=== PATIENT | male | born 1950 | race Caucasian/White ===

== ENCOUNTER → 2018-09-10 | Outpatient (CLI) | payer MEDICARE | END | disposition home or self-care (01) | LOC: CFH 13:06 | PROVIDERS: ATTEND Internal Medicine Cardiovascular Disease | DX: I35.1 Nonrheumatic aortic (valve) insufficiency (principal); I10 Essential (primary) hypertension; I25.10 Atherosclerotic heart disease of native coronary artery without angina pectoris; E78.5 Hyperlipidemia, unspecified; Z87.891 Personal history of nicotine dependence | CPT/HCPCS: 93306 ==

== ENCOUNTER → 2018-10-28 | Outpatient (CLI) | payer MEDICARE ==
[~2018-10-28] MED LIST: GADOBUTROL 10 MMOL/10 ML PFS ONE
== END | disposition home or self-care (01) ==
LOC: CFH 14:20
PROVIDERS: ATTEND Nurse Practitioner Family
DX: I73.9 Peripheral vascular disease, unspecified (principal); R90.82 White matter disease, unspecified; G93.89 Other specified disorders of brain
CPT/HCPCS: 70553; A9585

== ENCOUNTER → 2019-01-03 | Outpatient (CLI) | payer MEDICARE ==
[~2019-01-03] MED LIST changes: +ASPI-496 PO; +ATOR10TA PO; +BENA40TA3 PO; -GADOBUTROL 10 MMOL/10 ML PFS ONE; +HYDR25TA6 PO; +LEVE250T5 PO; +LEVE500T8 PO
[2019-01-03 10:12] LABS: MICROSCOPIC NOT IND
[2019-01-03 10:14] LABS: BASOPHILS # (AUTO) 0.09 x10^3/uL (0-0.1); BASOPHILS % (AUTO) 1 % (0-1); EOSINOPHILS # (AUTO) 0.14 x10^3/uL (0-0.4); EOSINOPHILS % (AUTO) 2 % (1-7); LYMPHOCYTES # (AUTO) 2.32 x10^3/uL (1-3.4); LYMPHOCYTES % (AUTO) 26 % (22-44); MD NO; MEAN CORPUSCULAR HEMOGLOBIN 31.5 pg (27.5-34.5); MEAN CORPUSCULAR VOLUME 92.5 fL (81-97); MEAN PLATELET VOLUME 7.7 fL (7.4-10.4); MONOCYTES # (AUTO) 0.71 x10^3/uL (0.2-0.8); MONOCYTES % (AUTO) 8 % (2-9); NEUTROPHILS # (AUTO) 5.69 x10^3/uL (1.8-6.8); NEUTROPHILS % (AUTO) 64 % (42-75); PLATELET COUNT 377 x10^3/uL (130-400); RED BLOOD COUNT 5.21 x10^6/uL (4.38-5.82); RED CELL DISTRIBUTION WIDTH 14.2 % (9.4-14.8)
[2019-01-03 10:16] LABS: CULTURE INDICATED? NO
[2019-01-03 10:22] LABS: ALANINE AMINOTRANSFERASE 22 U/L (12-78); ALBUMIN 3.6 g/dL (3.4-5.0); ANION GAP 4 mmol/L (5-15); CALCIUM 9.2 mg/dL (8.5-10.1); CHLORIDE 97 mmol/L (98-107); CREATININE 1.11 mg/dL (0.7-1.3)
[2019-01-03 10:25] LABS: ALKALINE PHOSPHATASE 79 U/L (45-117); BILIRUBIN,TOTAL 0.6 mg/dL (0.2-1.0); TOTAL PROTEIN 7.8 g/dL (6.4-8.2)
== END | disposition home or self-care (01) ==
LOC: STAR 08:48
PROVIDERS: ATTEND Orthopaedic Surgery
DX: Z01.818 Encounter for other preprocedural examination (principal); M17.11 Unilateral primary osteoarthritis, right knee
CPT/HCPCS: 36415; 80053; 81003; 85025; 87081; 93005

== ENCOUNTER 2019-01-10 05:23 | Inpatient (IN) | payer MEDICARE ==
[~2019-01-10] VITALS: Ht 188 cm; Wt 101.0 kg
[2019-01-10] MEDS ORDERED: LACTATED RINGERS 1,000 ML IV SCH (06:07)
[2019-01-10] MEDS ORDERED: KETOROLAC 60 MG/2 ML ONE (06:12)
[2019-01-10] MEDS ORDERED: EPINEPHRINE 1 MG/ML, 1ML ONE (06:13)
[2019-01-10] MEDS ORDERED: ROPIvacaine/PF 0.2%, 20 ML ONE (06:13)
[2019-01-10] MEDS ORDERED: SODIUM CHLORIDE 0.9% 50 ML ONE (06:13)
[2019-01-10] MEDS ORDERED: TRANEXAMIC ACID 100 MG/ML, 10ML ONE (06:13)
[2019-01-10] MEDS ORDERED: VANCOMYCIN 1,000 MG ONE (06:13)
[2019-01-10 06:38] VITALS: BP 152/83
[2019-01-10] MEDS ORDERED: MIDAZOLAM 1 MG/ML, 2ML ONE (06:44)
[2019-01-10] MEDS ORDERED: FENTANYL PF 250 MCG/5ML ONE (06:44)
[2019-01-10] MEDS ORDERED: LIDOCAINE 2%, 6 ML JEL.PF.APP MM ONE (06:47)
[2019-01-10] MEDS ORDERED: OxyconTIN ER 10 MG TAB.ER PO ONE (07:00)
[2019-01-10] MEDS ORDERED: ACETAMINOPHEN 500 MG TABLET PO ONE (07:00)
[2019-01-10] MEDS ORDERED: ONDANSETRON ODT 8 MG PO ONE (07:00)
[2019-01-10] MEDS ORDERED: GABAPENTIN 300 MG CAPSULE PO ONE (07:00)
[2019-01-10] MEDS ORDERED: hydrALAzine 20 MG/ML, 1ML ONE (07:08)
[2019-01-10] MEDS ORDERED: DEXAMETHASONE 4 MG/ML, 1ML ONE (07:08)
[2019-01-10] MEDS ORDERED: BUPIVACAINE/PF 0.25% ONE (07:54)
[2019-01-10] MEDS ORDERED: LIDOCAINE-MPF 2% ,5ML ONE (07:54)
[2019-01-10] MEDS ORDERED: CEFAZOLIN 1,000 MG ONE (07:54)
[2019-01-10] MEDS ORDERED: PROPOFOL 10 MG/ML, 20ML ONE (07:54)
[2019-01-10] MEDS ORDERED: MIDAZOLAM 1 MG/ML, 2ML IV PRN (08:00)
[2019-01-10] MEDS ORDERED: MEPERIDINE/PF 25MG/0.5ML IVPush PRN (08:00)
[2019-01-10] MEDS ORDERED: ONDANSETRON 2MG/ML, 2ML IV PRN ×2 (08:00→09:00)
[2019-01-10] MEDS ORDERED: PROMETHAZINE 25 MG/ML, 1ML IV PRN (08:00)
[2019-01-10] MEDS ORDERED: OXYcodone 5 MG/5 ML ORAL.SOL UDC PO PRN (08:00)
[2019-01-10] MEDS ORDERED: ALBUTEROL/IPRATROPIUM 2.5MG/0.5MG, 3 ML NPPB PRN (08:00)
[2019-01-10] MEDS ORDERED: METOPROLOL 1 MG/ML, 5ML IV PRN (08:00)
[2019-01-10] MEDS ORDERED: hydrALAzine 20 MG/ML, 1ML IV PRN (08:00)
[2019-01-10] MEDS ORDERED: FENTANYL PF 100 MCG/2ML ONE (08:35)
[2019-01-10] MEDS: D5%-0.45% NACL 1,000 ML IV SCH ×2 (08:35→13:24)
[2019-01-10] MEDS: FENTANYL PF 100 MCG/2ML IV PRN ×2 (08:37→08:53)
[2019-01-10] MEDS ORDERED: HYDROmorphone 1 MG/ML, 1ML ONE (08:43)
[2019-01-10] MEDS: HYDROmorphone 2 MG/ML, 1ML IVPush PRN ×2 (08:45→08:57)
[2019-01-10] MEDS ORDERED: PROMETHAZINE 25 MG/ML, 1ML IM PRN (09:00)
[2019-01-10] MEDS ORDERED: DIAZEPAM 5 MG TABLET PO PRN (09:00)
[2019-01-10] MEDS ORDERED: HYDROmorphone 1 MG/ML, 1ML IV PRN (09:00)
[2019-01-10] MEDS ORDERED: SENNA/DOCUSATE TABLET PO PRN (09:00)
[2019-01-10] MEDS ORDERED: BISACODYL 10 MG SUPP PR PRN (09:00)
[2019-01-10] MEDS ORDERED: MULTIVITAMINS/MINERALS TABLET PO SCH (09:00)
[2019-01-10] MEDS ORDERED: KETOROLAC 30 MG/1 ML IV SCH (09:00)
[2019-01-10] MEDS ORDERED: HYDROCHLOROTHIAZIDE 25 MG TABLET PO SCH (09:00)
[2019-01-10] MEDS ORDERED: DOCUSATE 100 MG CAPSULE PO SCH (09:00)
[2019-01-10] MEDS ORDERED: OXYcodone IR 5MG TABLET PO PRN (09:00)
[2019-01-10] MEDS ORDERED: TRANEXAMIC ACID 1,000 MG in SODIUM CHLORIDE 0.9% 100 ML IVPB ONE (09:00)
[2019-01-10] MEDS ORDERED: DIPHENHYDRAMINE 50 MG CAPSULE PO PRN (09:00)
[2019-01-10] MEDS ORDERED: BENAZEPRIL 20 MG TABLET PO SCH (09:00)
[2019-01-10] MEDS ORDERED: PROMETHAZINE 12.5 MG SUPP PR PRN (09:00)
[2019-01-10] MEDS ORDERED: MAGNESIUM HYDROXIDE 8%, 30ML UDC PO PRN (09:00)
[2019-01-10] MEDS ORDERED: ONDANSETRON 4 MG TABLET PO PRN (09:00)
[2019-01-10] MEDS: ACETAMINOPHEN 650 MG/20.3 ML UDC PO SCH ×2 (09:00→15:14)
[2019-01-10] MEDS ORDERED: LEVETIRACETAM 500 MG TABLET PO SCH ×2 (09:00)
[2019-01-10] MEDS ORDERED: ZOLPIDEM 5MG TABLET PO PRN (09:00)
[2019-01-10] MEDS ORDERED: ALUMINUM/MAG/SIMETHICONE 30 ML UDC PO PRN (09:00)
[2019-01-10 09:45] VITALS: BP 145/70
[2019-01-10 13:48] VITALS: BP 129/68
[2019-01-10] MEDS ORDERED: CEFAZOLIN PMX 2GM/50ML 50 ML IVPB SCH (14:30)
[2019-01-10] MEDS ORDERED: OXYC5CAP2 PO (17:04)
[2019-01-10 18:00] VITALS: BP 122/69
[2019-01-10] MEDS ORDERED: ATORVASTATIN 10 MG TABLET PO SCH (21:00)
[2019-01-11] MEDS ORDERED: DEXAMETHASONE 4 MG/ML IVPush SCH (06:00)
[2019-01-11] MEDS ORDERED: ASPIRIN 81 MG TABLET EC PO SCH (06:00)
[2019-01-11] MEDS ORDERED: KETOROLAC 30 MG/1 ML IV SCH (09:00)
== END 2019-01-10 18:06 | disposition home or self-care (01) | DRG 470 ==
LOC: OUT 05:23 → ORIP 08:35 → 4NOR 09:48
PROVIDERS: ADMIT Orthopaedic Surgery; ATTEND Orthopaedic Surgery
PROC: 3E0T3BZ Introduction of Anesthetic Agent into Peripheral Nerves and Plexi, Percutaneous Approach (ICD-10-PCS; 2019-01-10)
PROC: 0SRC0J9 Replacement of Right Knee Joint with Synthetic Substitute, Cemented, Open Approach (ICD-10-PCS; principal; 2019-01-10 07:30)
DX: M17.11 Unilateral primary osteoarthritis, right knee (principal); I10 Essential (primary) hypertension; E78.5 Hyperlipidemia, unspecified; M21.161 Varus deformity, not elsewhere classified, right knee; I25.10 Atherosclerotic heart disease of native coronary artery without angina pectoris; L40.9 Psoriasis, unspecified; Z87.891 Personal history of nicotine dependence; I25.2 Old myocardial infarction; Z95.5 Presence of coronary angioplasty implant and graft; Z79.82 Long term (current) use of aspirin
CPT/HCPCS: C1713; G0378; J0171; J0690; J1100; J1170; J1885; J2250; J2704; J2795; J3010; J3370; J3490; Q0162; C1776; J0360; J7120

== ENCOUNTER 2019-06-02 07:19 | Outpatient (CLI) | payer MEDICARE ==
[~2019-06-02 07:19] MED LIST changes: +OXYC5CAP2 PO
== END 2019-06-02 23:59 | disposition home or self-care (01) ==
LOC: CVU 07:19
PROVIDERS: ATTEND Internal Medicine Cardiovascular Disease
DX: I34.0 Nonrheumatic mitral (valve) insufficiency (principal); I51.7 Cardiomegaly; E78.5 Hyperlipidemia, unspecified; Z87.891 Personal history of nicotine dependence
CPT/HCPCS: 0399T; 93306

== ENCOUNTER 2019-06-02 08:31 | Emergency (ER) | payer MEDICARE ==
[~2019-06-02] VITALS: Ht 188 cm; Wt 96.0 kg
--- NOTE | 2019-06-02 08:41 | NUR ---
Pt ambulates to room from triage with steady gait and balance. NADN. No obvious defecits observed.
--- NOTE | 2019-06-02 08:59 | NUR ---
Pt resting on gurney. Pt states, "I am feeling anxious this morning. I smoked a ciggarette and drank some coffee this monring. I normally don't smoke. I had an echo done this morning, my blood pressure was too high, so they sent me down here." Pt denies cp, sob, n/v/d, or syncope. CMS intact. NADN. Call light within reach. NIBP cuff on. Provided bedside report to IDANIA Camejo. All questions answered.
--- NOTE | 2019-06-02 08:59 | NUR ---
BEDSIDE REPORT FROM IDANIA MEADOWS. ASSUMED CARE OF PATIENT AT THIS TIME.
--- NOTE | 2019-06-02 09:00 | NUR ---
PATIENT AMB WITH STEADY GAIT TO BATHROOM.
[2019-06-02] MEDS ORDERED: LORazepam 0.5MG TABLET PO ONE (09:30)
[2019-06-02] MEDS ORDERED: LORazepam 0.5MG TABLET ONE (09:32)
[2019-06-02 09:45] LABS: BASOPHILS # (AUTO) 0.06 x10^3/uL (0-0.1); BASOPHILS % (AUTO) 1 % (0-1); EOSINOPHILS # (AUTO) 0.09 x10^3/uL (0-0.4); EOSINOPHILS % (AUTO) 1 % (1-7); LYMPHOCYTES # (AUTO) 1.62 x10^3/uL (1-3.4); LYMPHOCYTES % (AUTO) 14 % (22-44); MD NO; MEAN CORPUSCULAR HEMOGLOBIN 30.4 pg (27.5-34.5); MEAN CORPUSCULAR VOLUME 92.1 fL (81-97); MONOCYTES # (AUTO) 0.77 x10^3/uL (0.2-0.8); MONOCYTES % (AUTO) 7 % (2-9); NEUTROPHILS # (AUTO) 8.89 x10^3/uL (1.8-6.8); NEUTROPHILS % (AUTO) 78 % (42-75); PLATELET COUNT 365 x10^3/uL (130-400); RED BLOOD COUNT 5.15 x10^6/uL (4.38-5.82); RED CELL DISTRIBUTION WIDTH 14.9 % (9.4-14.8)
[2019-06-02 09:57] LABS: ALANINE AMINOTRANSFERASE 18 U/L (12-78); ALBUMIN 3.7 g/dL (3.4-5.0); ANION GAP 6 mmol/L (5-15); CALCIUM 9.1 mg/dL (8.5-10.1); CHLORIDE 98 mmol/L (98-107); CREATININE 1.08 mg/dL (0.7-1.3)
[2019-06-02 10:02] LABS: ALKALINE PHOSPHATASE 95 U/L (45-117); BILIRUBIN,TOTAL 0.7 mg/dL (0.2-1.0); TOTAL PROTEIN 7.8 g/dL (6.4-8.2); TROPONIN I < 0.015 ng/mL (0.000-0.045)
--- NOTE | 2019-06-02 10:23 | NUR ---
VS UPDATED IN CHART, PATIENT REPORTS ATIVAN HELPED, SITTING COMFORTABLY IN RNEY, BP NOW 170/85. NO ADDITIONAL NEEDS AT THIS TIME, CHART UP FOR RECHECKK.
[2019-06-02 11:07] VITALS: BP 156/73
--- NOTE | 2019-06-02 11:07 | NUR ---
Patient/Caregiver given discharge instructions and they have confirmed that they understand the instructions. Patient ambulatory with steady gait. Patient okay to drive self home for safe DC per ERP.
== END 2019-06-02 11:07 | disposition home or self-care (01) ==
LOC: ED 10:29
DX: I10 Essential (primary) hypertension (principal); R93.2 Abnormal findings on diagnostic imaging of liver and biliary tract; F17.200 Nicotine dependence, unspecified, uncomplicated
CPT/HCPCS: 36415; 80053; 84484; 85025; 93005; 99284

== ENCOUNTER 2019-09-26 05:36 | Observation (INO) | payer MEDICARE ==
[~2019-09-26] VITALS: Ht 188 cm; Wt 98.0 kg
[~2019-09-26 05:36] MED LIST changes: +AMLO10TA8 PO
[2019-09-26] MEDS ORDERED: LACTATED RINGERS 1,000 ML IV SCH (06:02)
[2019-09-26] MEDS ORDERED: KETOROLAC 60 MG/2 ML ONE (06:15)
[2019-09-26] MEDS ORDERED: ROPIvacaine/PF 0.2%, 20 ML ONE (06:15)
[2019-09-26] MEDS ORDERED: TRANEXAMIC ACID 100 MG/ML, 10ML ONE (06:15)
[2019-09-26] MEDS ORDERED: VANCOMYCIN 1,000 MG ONE (06:16)
[2019-09-26] MEDS ORDERED: SODIUM CHLORIDE 0.9% 50 ML ONE (06:16)
[2019-09-26] MEDS ORDERED: EPINEPHRINE 1 MG/ML, 1ML ONE (06:16)
[2019-09-26] MEDS ORDERED: ACETAMINOPHEN 500 MG TABLET ONE (06:34)
[2019-09-26] MEDS ORDERED: GABAPENTIN 300 MG CAPSULE ONE (06:35)
[2019-09-26] MEDS ORDERED: FENTANYL PF 100 MCG/2ML ONE (06:35)
[2019-09-26] MEDS ORDERED: BUPIVACAINE/PF 0.25% ONE (06:35)
[2019-09-26] MEDS ORDERED: MIDAZOLAM 1 MG/ML, 2ML ONE (06:35)
[2019-09-26] MEDS ORDERED: GABAPENTIN 300 MG CAPSULE PO ONE (07:00)
[2019-09-26] MEDS ORDERED: ACETAMINOPHEN 500 MG TABLET PO ONE (07:00)
[2019-09-26] MEDS ORDERED: FENTANYL PF 250 MCG/5ML ONE (07:05)
[2019-09-26] MEDS ORDERED: ONDANSETRON ODT 8 MG PO PRN (07:30)
[2019-09-26] MEDS ORDERED: HYDROmorphone 2 MG/ML, 1ML IVPush PRN (07:30)
[2019-09-26] MEDS ORDERED: hydrALAzine 20 MG/ML, 1ML IV PRN (07:30)
[2019-09-26] MEDS ORDERED: PROMETHAZINE 25 MG SUPP PR PRN (07:30)
[2019-09-26] MEDS ORDERED: ONDANSETRON 2MG/ML, 2ML IV PRN (07:30)
[2019-09-26] MEDS ORDERED: LABETALOL 5MG/ML, 20ML IV PRN (07:30)
[2019-09-26] MEDS ORDERED: OXYcodone 5 MG/5 ML ORAL.SOL UDC PO PRN (07:30)
[2019-09-26] MEDS ORDERED: FENTANYL PF 100 MCG/2ML IV PRN (07:30)
[2019-09-26] MEDS ORDERED: LORazepam 2 MG/ML, 1ML IVPush PRN (07:30)
[2019-09-26] MEDS ORDERED: METOPROLOL 1 MG/ML, 5ML IV PRN (07:30)
[2019-09-26] MEDS ORDERED: PROMETHAZINE 25 MG/ML, 1ML IV PRN (07:30)
[2019-09-26] MEDS ORDERED: DEXAMETHASONE 4 MG/ML, 1ML ONE (07:33)
[2019-09-26] MEDS ORDERED: CEFAZOLIN 1,000 MG ONE (07:33)
[2019-09-26] MEDS ORDERED: PROPOFOL 10 MG/ML, 20ML ONE (07:33)
[2019-09-26] MEDS ORDERED: ONDANSETRON 2MG/ML, 2ML ONE (07:33)
[2019-09-26] MEDS ORDERED: PROPOFOL 50 ML ONE (07:35)
[2019-09-26] MEDS ORDERED: HYDROcodone/APAP 10/325 MG TABLET PO PRN (09:00)
[2019-09-26] MEDS ORDERED: PSYLLIUM PACKET PO PRN (09:00)
[2019-09-26] MEDS ORDERED: ONDANSETRON 4 MG TABLET PO PRN (09:00)
[2019-09-26] MEDS ORDERED: TEMAZEPAM 15 MG CAPSULE PO PRN (09:00)
[2019-09-26] MEDS ORDERED: MAGNESIUM HYDROXIDE 8%, 30ML UDC PO PRN (09:00)
[2019-09-26] MEDS ORDERED: DIPHENHYDRAMINE 50 MG CAPSULE PO PRN (09:00)
[2019-09-26] MEDS ORDERED: TRANEXAMIC ACID 1,000 MG in SODIUM CHLORIDE 0.9% 100 ML IVPB ONE (09:00)
[2019-09-26] MEDS ORDERED: HYDROcodone/APAP 5/325 TABLET PO PRN (09:00)
[2019-09-26] MEDS ORDERED: ACETAMINOPHEN 500 MG TABLET PO SCH (09:00)
[2019-09-26] MEDS ORDERED: PROMETHAZINE 12.5 MG SUPP PR PRN (09:00)
[2019-09-26] MEDS ORDERED: MORPHINE SULFATE 4 MG/ML, 1ML IVPush PRN (09:00)
[2019-09-26] MEDS ORDERED: ALUMINUM/MAG/SIMETHICONE 30 ML UDC PO PRN (09:00)
[2019-09-26] MEDS ORDERED: DOCUSATE 100 MG CAPSULE PO SCH (09:00)
[2019-09-26] MEDS ORDERED: ONDANSETRON 2MG/ML, 2ML IVPush PRN (09:00)
[2019-09-26] MEDS ORDERED: D5%-0.45% NACL 1,000 ML IV SCH (09:51)
[2019-09-26] MEDS ORDERED: KETOROLAC 30 MG/1 ML IV SCH (10:00)
[2019-09-26 13:33] VITALS: BP 130/72
[2019-09-26] MEDS ORDERED: CEFAZOLIN PMX 1GM/50ML 50 ML IVPB SCH (15:30)
[2019-09-26] MEDS ORDERED: ASPIRIN 81 MG TABLET EC PO SCH (18:00)
[2019-09-26] MEDS ORDERED: ATORVASTATIN 10 MG TABLET PO SCH (21:00)
[2019-09-26] MEDS ORDERED: AMLODIPINE 5 MG TABLET PO SCH (21:00)
[2019-09-27] MEDS ORDERED: DEXAMETHASONE 4 MG/ML, 1ML IVPush SCH (06:00)
[2019-09-27] MEDS ORDERED: LEVETIRACETAM 500 MG TABLET PO SCH (09:00)
[2019-09-27] MEDS ORDERED: HYDROCHLOROTHIAZIDE 25 MG TABLET PO SCH (09:00)
== END 2019-09-26 16:57 | disposition home or self-care (01) ==
LOC: OUT 05:36 → 4NE 08:35
PROVIDERS: ADMIT Orthopaedic Surgery; ATTEND Orthopaedic Surgery
DX: M17.12 Unilateral primary osteoarthritis, left knee (principal); I10 Essential (primary) hypertension; I25.10 Atherosclerotic heart disease of native coronary artery without angina pectoris; Z79.82 Long term (current) use of aspirin
CPT/HCPCS: 27447; 73560; 96374; 97161; C1713; C1776; G0378; J0171; J0690; J1100; J1885; J2250; J2405; J2704; J2795; J3010; J3490; J7120; J3370

== ENCOUNTER → 2020-05-25 | Outpatient (CLI) | payer MEDICARE | END | disposition home or self-care (01) | LOC: CFH 08:26 | PROVIDERS: ATTEND Internal Medicine Cardiovascular Disease | DX: I06.1 Rheumatic aortic insufficiency (principal); I11.9 Hypertensive heart disease without heart failure; I71.2 Thoracic aortic aneurysm, without rupture | CPT/HCPCS: 93306 ==